=== PATIENT | female | born 1925 | race Caucasian/White ===

== ENCOUNTER 2016-04-26 10:36 | Outpatient (CLI) | payer MEDICARE, OTHER | END 2016-04-26 10:37 | disposition home or self-care (01) | DX: I82.401 Acute embolism and thrombosis of unspecified deep veins of right lower extremity (principal) ==

== ENCOUNTER 2016-05-06 14:33 | Outpatient (CLI) | payer MEDICARE, OTHER | END 2016-05-06 14:34 | disposition home or self-care (01) | DX: I82.401 Acute embolism and thrombosis of unspecified deep veins of right lower extremity (principal) ==

== ENCOUNTER 2016-05-20 13:34 | Outpatient (CLI) | payer MEDICARE, OTHER | END 2016-05-20 13:35 | disposition home or self-care (01) | DX: I82.401 Acute embolism and thrombosis of unspecified deep veins of right lower extremity (principal) ==

== ENCOUNTER 2016-06-08 09:28 | Outpatient (CLI) | payer MEDICARE, OTHER | END 2016-06-08 09:29 | disposition home or self-care (01) | DX: I50.32 Chronic diastolic (congestive) heart failure (principal); E78.5 Hyperlipidemia, unspecified; I82.401 Acute embolism and thrombosis of unspecified deep veins of right lower extremity ==

== ENCOUNTER 2016-06-17 13:15 | Outpatient (CLI) | payer MEDICARE, OTHER | END 2016-06-17 13:16 | disposition home or self-care (01) | DX: I82.401 Acute embolism and thrombosis of unspecified deep veins of right lower extremity (principal) ==

== ENCOUNTER 2016-06-28 09:16 | Outpatient (CLI) | payer MEDICARE, OTHER | END 2016-06-28 09:17 | disposition home or self-care (01) | DX: I82.401 Acute embolism and thrombosis of unspecified deep veins of right lower extremity (principal) ==

== ENCOUNTER 2016-07-25 13:09 | Outpatient (CLI) | payer MEDICARE, OTHER | END 2016-07-25 13:10 | disposition home or self-care (01) | DX: I82.401 Acute embolism and thrombosis of unspecified deep veins of right lower extremity (principal) ==

== ENCOUNTER 2016-08-01 09:56 | Outpatient (CLI) | payer MEDICARE, OTHER | END 2016-08-01 09:57 | disposition home or self-care (01) | DX: I82.401 Acute embolism and thrombosis of unspecified deep veins of right lower extremity (principal) ==

== ENCOUNTER 2016-08-08 13:27 | Outpatient (CLI) | payer MEDICARE, OTHER | END 2016-08-08 13:28 | disposition home or self-care (01) | DX: I82.401 Acute embolism and thrombosis of unspecified deep veins of right lower extremity (principal) ==

== ENCOUNTER 2016-08-19 10:00 | Outpatient (CLI) | payer MEDICARE, OTHER | END 2016-08-19 10:01 | disposition home or self-care (01) | DX: I82.401 Acute embolism and thrombosis of unspecified deep veins of right lower extremity (principal); I50.32 Chronic diastolic (congestive) heart failure; E78.5 Hyperlipidemia, unspecified ==

== ENCOUNTER 2016-09-02 13:21 | Outpatient (CLI) | payer MEDICARE, OTHER | END 2016-09-02 13:22 | disposition home or self-care (01) | DX: I82.401 Acute embolism and thrombosis of unspecified deep veins of right lower extremity (principal) ==

== ENCOUNTER 2016-09-09 13:04 | Outpatient (CLI) | payer MEDICARE, OTHER | END 2016-09-09 13:05 | disposition home or self-care (01) | LOC: LAB.F 13:04 | PROVIDERS: ATTEND Registered Nurse | DX: I82.401 Acute embolism and thrombosis of unspecified deep veins of right lower extremity (principal) | CPT/HCPCS: 85610 ==

== ENCOUNTER 2016-09-26 13:24 | Outpatient (CLI) | payer MEDICARE, OTHER | END 2016-09-26 13:25 | disposition home or self-care (01) | LOC: LAB.F 13:24 | PROVIDERS: ATTEND Registered Nurse | DX: I82.401 Acute embolism and thrombosis of unspecified deep veins of right lower extremity (principal) | CPT/HCPCS: 85610 ==

== ENCOUNTER 2016-10-24 13:23 | Outpatient (CLI) | payer MEDICARE, OTHER | END 2016-10-24 13:24 | disposition home or self-care (01) | LOC: LAB.F 13:23 | PROVIDERS: ATTEND Registered Nurse | DX: I82.401 Acute embolism and thrombosis of unspecified deep veins of right lower extremity (principal) | CPT/HCPCS: 85610 ==

== ENCOUNTER 2016-10-28 13:26 | Outpatient (CLI) | payer MEDICARE, OTHER | END 2016-10-28 13:27 | disposition home or self-care (01) | LOC: LAB.F 13:26 | PROVIDERS: ATTEND Registered Nurse | DX: I82.401 Acute embolism and thrombosis of unspecified deep veins of right lower extremity (principal) | CPT/HCPCS: 85610 ==

== ENCOUNTER 2016-11-14 12:47 | Outpatient (CLI) | payer MEDICARE, OTHER | END 2016-11-14 12:48 | disposition home or self-care (01) | LOC: LAB.F 12:47 | PROVIDERS: ATTEND Registered Nurse | DX: I82.401 Acute embolism and thrombosis of unspecified deep veins of right lower extremity (principal) | CPT/HCPCS: 85610 ==